=== PATIENT | male | born 1975 | race African-American/Black ===

== ENCOUNTER → 2018-02-13 | Outpatient (CLI) | payer MEDICAID ==
[2018-02-13 09:33] LABS: HEMATOCRIT 48.8 % (37.9-51.0); HEMOGLOBIN 16.6 g/dL (13.5-17.0); MEAN CORPUSCULAR HEMOGLOBIN 30.4 pg (27.0-33.4); MEAN CORPUSCULAR VOLUME 90 fl (80-97); PLATELET COUNT 200 10^3/uL (150-450); RED BLOOD COUNT 5.45 10^6/uL (4.35-5.55); RED CELL DISTRIBUTION WIDTH 14.1 % (11.5-14.0); WHITE BLOOD COUNT 6.3 10^3/uL (4.0-10.5)
[2018-02-13 09:56] LABS: ALANINE AMINOTRANSFERASE 42 U/L (21-72); ALBUMIN 4.6 g/dL (3.5-5.0); ALKALINE PHOSPHATASE 72 U/L (38-126); ANION GAP 11 (5-19); ASPARTATE AMINO TRANSFERASE 36 U/L (17-59); BILIRUBIN,DIRECT 0.1 mg/dL (0.0-0.4); BILIRUBIN,TOTAL 0.7 mg/dL (0.2-1.3); BLOOD UREA NITROGEN 20 mg/dL (7-20); CALCIUM 9.9 mg/dL (8.4-10.2); CARBON DIOXIDE 25 mmol/L (22-30); CHLORIDE 108 mmol/L (98-107); CHOLESTEROL 201.33 mg/dL (0-200); GLUCOSE 128 mg/dL (75-110); POTASSIUM 4.4 mmol/L (3.6-5.0); SODIUM 144.1 mmol/L (137-145); TOTAL PROTEIN 7.3 g/dL (6.3-8.2); TRIGLYCERIDES 123 mg/dL (<150)
[2018-02-13 10:07] LABS: DIRECT LDL 125 mg/dL (<100)
--- NOTE | 2018-02-13 11:23 | RADIOLOGY REPORT (SQ) ---
EXAM DESCRIPTION: CHEST PA/LATERAL COMPLETED DATE/TIME: 02/13/2018 9:06 am REASON FOR STUDY: CHEST PAIN COMPARISON: None. EXAM PARAMETERS: NUMBER OF VIEWS: two views TECHNIQUE: Digital Frontal and Lateral radiographic views of the chest acquired. RADIATION DOSE: NA LIMITATIONS: none FINDINGS: LUNGS AND PLEURA: Scarring in the left lower lobe. No pleural effusion. MEDIASTINUM AND HILAR STRUCTURES: No masses or contour abnormalities. HEART AND VASCULAR STRUCTURES: Heart normal size. No evidence for failure. BONES: No acute findings. HARDWARE: None in the chest. OTHER: No other significant finding. IMPRESSION: NO SIGNIFICANT RADIOGRAPHIC FINDING IN THE CHEST. TECHNICAL DOCUMENTATION: JOB ID: [id number] [email or web address]- All Rights Reserved Reading location - IP/workstation name: [email or web address]
== END ==
LOC: OD 08:43
PROVIDERS: ATTEND Internal Medicine Cardiovascular Disease
DX: R07.9 Chest pain, unspecified (principal); I10 Essential (primary) hypertension; E78.2 Mixed hyperlipidemia; E66.09 Other obesity due to excess calories; Z79.899 Other long term (current) drug therapy
CPT/HCPCS: 36415; 71046; 80048; 80061; 80076; 83036; 85027

== ENCOUNTER → 2019-04-30 | Outpatient (CLI) | payer MEDICAID ==
[2019-04-30 12:25] LABS: HEMATOCRIT 43.6 % (37.9-51.0); HEMOGLOBIN 14.8 g/dL (13.5-17.0); MEAN CORPUSCULAR HEMOGLOBIN 29.7 pg (27.0-33.4); MEAN CORPUSCULAR HGB CONC 33.8 g/dL (32.0-36.0); MEAN CORPUSCULAR VOLUME 88 fl (80-97); PLATELET COUNT 190 10^3/uL (150-450); RED BLOOD COUNT 4.96 10^6/uL (4.35-5.55); RED CELL DISTRIBUTION WIDTH 14.4 % (11.5-14.0); WHITE BLOOD COUNT 6.8 10^3/uL (4.0-10.5)
[2019-04-30 12:32] LABS: ALANINE AMINOTRANSFERASE 32 U/L (21-72); ALBUMIN 4.2 g/dL (3.5-5.0); ALKALINE PHOSPHATASE 67 U/L (38-126); ANION GAP 9 (5-19); ASPARTATE AMINO TRANSFERASE 27 U/L (17-59); BILIRUBIN,DIRECT 0.3 mg/dL (0.0-0.4); BILIRUBIN,TOTAL 0.7 mg/dL (0.2-1.3); BLOOD UREA NITROGEN 16 mg/dL (7-20); CALCIUM 9.4 mg/dL (8.4-10.2); CARBON DIOXIDE 21 mmol/L (22-30); CHLORIDE 109 mmol/L (98-107); GLUCOSE 181 mg/dL (75-110); POTASSIUM 4.4 mmol/L (3.6-5.0); SODIUM 139.4 mmol/L (137-145); TOTAL PROTEIN 7.1 g/dL (6.3-8.2)
[2019-04-30 12:33] LABS: ALANINE AMINOTRANSFERASE 32 U/L (21-72); ALBUMIN 4.2 g/dL (3.5-5.0); ALKALINE PHOSPHATASE 67 U/L (38-126); ANION GAP 9 (5-19); ASPARTATE AMINO TRANSFERASE 27 U/L (17-59); BILIRUBIN,DIRECT 0.3 mg/dL (0.0-0.4); BILIRUBIN,TOTAL 0.7 mg/dL (0.2-1.3); BLOOD UREA NITROGEN 16 mg/dL (7-20); CALCIUM 9.4 mg/dL (8.4-10.2); CARBON DIOXIDE 21 mmol/L (22-30); CHLORIDE 109 mmol/L (98-107); GLUCOSE 181 mg/dL (75-110); POTASSIUM 4.4 mmol/L (3.6-5.0); SODIUM 139.4 mmol/L (137-145); TOTAL PROTEIN 7.1 g/dL (6.3-8.2)
[2019-04-30 12:40] LABS: INTERNATIONAL RATION (INR) 0.95; PROTHROMBIN TIME 13.2 SEC (11.4-15.4)
[2019-04-30 12:41] LABS: PARTIAL THROMBOPLASTIN TIME 28.7 SEC (23.5-35.8)
== END ==
LOC: OD 10:34
PROVIDERS: ATTEND Physician Assistant
DX: Z01.810 Encounter for preprocedural cardiovascular examination (principal); E78.00 Pure hypercholesterolemia, unspecified; R07.9 Chest pain, unspecified; R07.89 Other chest pain; Z79.01 Long term (current) use of anticoagulants; Z79.899 Other long term (current) drug therapy
CPT/HCPCS: 36415; 80048; 80076; 83735; 85027; 85610; 85730

== ENCOUNTER 2019-07-06 12:13 | Emergency (ER) | payer MEDICAID ==
[2019-07-06] MEDS ORDERED: AZITHROMYCIN 250 MG TABLET PO ONE (12:45)
[2019-07-06] MEDS ORDERED: CEFTRIAXONE INJ 250 MG VIAL IM ONE (12:45)
[2019-07-06] MEDS ORDERED: LIDOCAINE 1% INJ-PF (10 MG/ML) 30 ML SDV INJ ONE (12:45)
[2019-07-06] MEDS ORDERED: IBUPROFEN 800 MG TABLET PO ONE (12:46)
--- NOTE | 2019-07-06 12:46 | ER Document Report ---
HPI - HPI Time Seen by Provider: 07/06/19 12:36 Pain Level: 4 Context: Patient is a 44-year-old male with a history of cardiac stent placement, diabetes, hypertension who presents to the emergency department with 2 complaints. Patient reports he is having right hand pain after he tripped a few days ago. Patient reports he does have a history of surgery to the right hand years ago and does intermittently have pain but this has been worse since the fall. Patient states that specifically worse around the thumb. Patient states when he fell his right lateral hand took the brunt of the weight. Patient denies wrist pain. Patient also concern for possible STD exposure. Patient reports he was having sexual intercourse 3 days ago when the condom broke. Patient reports he woke up this morning with a yellow crust to the tip of the penis. Patient denies urinary symptoms. Patient unsure if sexual partner has tested positive for any STD. Patient denies testicular pain or swelling. Past Medical History - General Information source: Patient - Social History Smoking Status: Current Every Day Smoker Frequency of alcohol use: Rare Drug Abuse: None Lives with: Alone Family History: None - Past Medical History Cardiac Medical History: Reports: Hx Hypertension Pulmonary Medical History: Reports: None EENT Medical History: Reports: None Neurological Medical History: Reports: None Endocrine Medical History: Reports: Hx Diabetes Mellitus Type 2 Renal/ Medical History: Reports: None Malignancy Medical History: Reports None GI Medical History: Reports: None Musculoskeletal Medical History: Reports None Skin Medical History: Reports None Psychiatric Medical History: Reports: None Traumatic Medical History: Reports: None Infectious Medical History: Reports: None Past Surgical History: Reports: Other - Cardiac Stent placement Vertical Provider Document - CONSTITUTIONAL Agree With Documented VS: Yes Exam Limitations: No Limitations General Appearance: No Apparent Distress - INFECTION CONTROL TRAVEL OUTSIDE OF THE [place] IN LAST 30 DAYS: No - HEENT HEENT: Atraumatic, Normal ENT Exam, Normocephalic, PERRLA - NECK Neck: Normal Inspection - RESPIRATORY Respiratory: Breath Sounds Normal, No Respiratory Distress - CARDIOVASCULAR Cardiovascular: Regular Rate, Regular Rhythm - GI/ABDOMEN Gastrointestinal: Abdomen Soft, Abdomen Non-Tender, Normal Bowel Sounds - REPRODUCTIVE Male Genitalia: Normal Inspection Notes: With the nurse Serafin at the bedside I did perform a genitalia examination. There was no penile swelling, discharge, erythema or lesions present. Patient has a positive cremasteric reflex with no tenderness to the epididymis or testicular swelling. - MUSCULOSKELETAL/EXTREMETIES Notes: There is mild edema noted to the lateral aspect of the right hand. Patient reports this is chronic and not new. Patient is able to make a fist, okay sign and has good flexion and extension of all fingers. Patient does have pain to the base of the thumb without erythema, edema, ecchymosis or deformity. Patient has a strong +2 radial pulse. No snuffbox tenderness. - NEURO Level of Consciousness: Awake, Alert, Appropriate - DERM Integumentary: Warm, Dry, No Rash Course - Re-evaluation Re-evalutation: 07/06/19 12:50 Will prophylactically treat the patient for gonorrhea and chlamydia with Rocephin and Zithromax. Patient to provide us with a urine specimen. Will obtain an x-ray of the right hand to rule out any acute bony abnormality such as a fracture or dislocation. Patient in agreement with this plan. - Vital Signs Vital signs: Temp Pulse Resp BP Pulse Ox 98.5 F 93 18 111/71 99 07/06/19 12:17 07/06/19 12:17 07/06/19 12:17 07/06/19 12:17 07/06/19 12:17 - Laboratory Laboratory results interpreted by me: 07/06/19 13:22 Laboratory 07/06/19 12:40 Urine Color YELLOW Urine Appearance CLEAR Urine pH 5.0 Ur Specific [place] 1.016 Urine Protein NEGATIVE Urine Glucose (UA) NEGATIVE Urine Ketones NEGATIVE Urine Blood NEGATIVE Urine Nitrite NEGATIVE Urine Bilirubin NEGATIVE Urine Urobilinogen 2.0 H Ur Leukocyte Esterase NEGATIVE Urine WBC (Auto) 1 Urine RBC (Auto) 0 Urine Bacteria (Auto) TRACE Squamous Epi Cells Auto <1 Urine Mucus (Auto) RARE Urine Ascorbic Acid NEGATIVE Patient's urinalysis unremarkable for significant dehydration, blood, or infection. - Diagnostic Test Radiology results interpreted by me: 07/06/19 13:23 Hand X-Ray 07/06/19 12:46 IMPRESSION: No acute findings. Patient has a noted healed fifth metacarpal fracture which she did report in his history. Discharge - Discharge Clinical Impression: Possible exposure to STD, Hand pain, right Fall Qualifiers: Encounter type: initial encounter Qualified Code(s): W19.XXXA - Unspecified fall, initial encounter Hand sprain Qualifiers: Encounter type: initial encounter Laterality: right Qualified Code(s): S63.91XA - Sprain of unspecified part of right wrist and hand, initial encounter Condition: Stable Disposition: HOME, SELF-CARE Additional Instructions: Today you are seen in the emergency department for right hand pain after a fall as well as possible sexually transmitted disease. You have been treated prophylactically for gonorrhea and chlamydia. Your cultures have been sent off to the lab and you will be contacted. Please refrain from sexual activity for the next 2 weeks. If your cultures come back positive your partner needs to be treated and wait to have sexual intercourse at our activity for 2 weeks as well. Please return to emergency department if you develop fever, rash, testicular pain or swelling, penile pain or any other concerning signs or symptoms. The x-ray of your hand was negative for any acute fracture dislocation. It did note you had a healed fifth metacarpal fracture. Today your diagnosis is a sprain of the right hand. Please ice elevate and take Tylenol or ibuprofen as needed for pain. Continue your medication as you take for your pain management. Please return to the emergency department for worsening signs or symptoms. Forms: Smoking Cessation Education Referrals: KEVIN WAN PA-C [Primary Care Provider] - Follow up as needed
[2019-07-06 13:19] LABS: APPEARANCE,URINE CLEAR; BILIRUBIN,URINE NEGATIVE (NEGATIVE); COLOR,URINE YELLOW; GLUCOSE, URINE NEGATIVE (NEGATIVE); KETONES,URINE NEGATIVE (NEGATIVE); LEUKOCYTE ESTERASE,URINE NEGATIVE (NEGATIVE); NITRITE,URINE NEGATIVE (NEGATIVE); PROTEIN,URINE NEGATIVE (NEGATIVE); URINE SPECIFIC GRAVITY 1.016
--- NOTE | 2019-07-06 13:20 | RADIOLOGY REPORT (SQ) ---
EXAM DESCRIPTION: HAND RIGHT 3 VIEWS COMPLETED DATE/TIME: 07/06/2019 1:11 pm REASON FOR STUDY: fell on right hand COMPARISON: None. EXAM PARAMETERS: NUMBER OF VIEWS: Three views. TECHNIQUE: AP, lateral and oblique radiographic images acquired of the right hand. LIMITATIONS: None. FINDINGS: MINERALIZATION: Normal. BONES: No acute fracture dislocation. Healed fracture involving the proximal 5th metacarpal. JOINTS: No effusions. SOFT TISSUES: No soft tissue swelling. No foreign body. OTHER: No other significant finding. IMPRESSION: No acute findings. TECHNICAL DOCUMENTATION: JOB ID: [id number] [employer]- All Rights Reserved Reading location - IP/workstation name: [email or web address]
[2019-07-06 13:34] VITALS: BP 113/67
[2019-07-06 14:48] LABS: CHLAM PCR NOT DETECTED (NOT DETECT)
== END 2019-07-06 13:36 | disposition home or self-care (01) ==
LOC: ER 12:13
DX: S63.91XA Sprain of unspecified part of right wrist and hand, initial encounter (principal); Z20.2 Contact with and (suspected) exposure to infections with a predominantly sexual mode of transmission; M79.641 Pain in right hand; W19.XXXA Unspecified fall, initial encounter; F17.200 Nicotine dependence, unspecified, uncomplicated; E11.9 Type 2 diabetes mellitus without complications; I10 Essential (primary) hypertension
CPT/HCPCS: 99283; 96372; 81001; 87491; 87591; 73130; Q0144; J3490 ×2; J0696